=== PATIENT | female | born 2005 | race Hispanic/Latino ===

== ENCOUNTER 2024-01-06 02:08 | Emergency (ER) | payer MEDICAID ==
[~2024-01-06] VITALS: Ht 134.6 cm; Wt 95.3 kg
[2024-01-06] MEDS ORDERED: MUPI15C TP (06:19)
[2024-01-06] MEDS ORDERED: CLIN-141 PO (06:19)
[2024-01-06 07:14] LABS: BASOPHILS # (AUTO) 0.06 K/uL (0.00-0.20); EOSINOPHILS # (AUTO) 0.04 K/uL (0.00-0.70); EOSINOPHILS % (AUTO) 0.7 % (0.0-8.0); IMMATURE GRANULOCYTE ABSOLUTE 0.08 K/uL (0-1); LYMPHOCYTES # (AUTO) 0.7 K/uL (1.0-4.8); LYMPHOCYTES % (AUTO) 12.7 % (21.0-51.0); MEAN CORPUSCULAR HEMOGLOBIN 32.5 pg (27.0-33.0); MEAN CORPUSCULAR HGB CONC 35.1 g/dL (32.0-36.0); MEAN CORPUSCULAR VOLUME 92.5 fL (80-100); MONOCYTES # (AUTO) 0.4 K/uL (0.1-1.0); MONOCYTES % (AUTO) 7.4 % (3.0-13.0); NEUTROPHILS # (AUTO) 4.5 K/uL (1.8-7.7); NEUTROPHILS % (AUTO) 76.8 % (40.0-77.0); PLATELET COUNT (AUTO) 315 K/uL (130-400); RED CELL DISTRIBUTION WIDTH 13.4 % (11.0-15.5); WHITE BLOOD COUNT (AUTO) 5.8 K/uL (4.8-10.8)
[2024-01-06 08:04] VITALS: BP 114/69; PULSE 69; RESP 14; O2SAT 99
== END 2024-01-06 08:03 | disposition home or self-care (01) ==
LOC: EDH 02:08
DX: L73.2 Hidradenitis suppurativa (principal); R21 Rash and other nonspecific skin eruption; E03.9 Hypothyroidism, unspecified; Z79.899 Other long term (current) drug therapy; Z98.890 Other specified postprocedural states
CPT/HCPCS: 36415; 85025